=== PATIENT | male | born 1980 | race Caucasian/White ===

== ENCOUNTER 2022-04-01 16:57 | Emergency (ER) | payer MEDICAID, OTHER ==
[~2022-04-01] VITALS: Ht 185.4 cm; Wt 86.3 kg
[2022-04-01] MEDS ORDERED: CROTALIDAE POLYVALENT IMM F VIAL INJ IV ONE ×5 (17:01→21:21)
[2022-04-01] MEDS ORDERED: TETANUS-DIPTH-ACEL PERTUSSIS 0.5ML SYR Tdap IM ONE (17:30)
[2022-04-01] MEDS ORDERED: MORPHINE SULFATE INJ 2 MG/ml SYRG IV ONE ×2 (17:30→20:00)
[2022-04-01 17:55] LABS: Basophils # (auto) 0.1 10 ^3/uL (0-0.2); Hemoglobin 17.7 g/dL (13.5-17.5); Monocytes # (auto) 0.5 10 ^3/uL (0-1.3); Neutrophils # (auto) 5.9 10 ^3/uL (1.6-8.6); Nucleated Red Blood Cells % 0.1 %
[2022-04-01 17:56] LABS: Basophils % (auto) 0.7 % (0.0-2.0); Eosinophils # (auto) 0.1 10 ^3/uL (0-0.8); Eosinophils % (auto) 1.4 % (0.0-7.0); Lymphocytes % (auto) 30.9 % (10.0-50.0); Mean Corpuscular Hemoglobin 30.7 pg (28.0-32.0); Mean Corpuscular Hgb Conc. 33.4 g/dL (32.0-36.0); Mean Corpuscular Volume 91.9 fL (80.0-100.0); Red Blood Cells 5.77 10^6/uL (4.5-5.90); Red Cell Distribution Width 12.5 % (11.8-14.3); White Blood Cell 9.6 10^3/uL (4.4-10.8)
[2022-04-01 18:09] LABS: Albumin 3.9 g/dL (3.4-5.0); Potassium 3.8 mmol/L (3.5-5.1)
[2022-04-01 18:12] LABS: BUN/Creatinine Ratio 11.6
[2022-04-01 18:14] LABS: Bilirubin, Total 0.4 mg/dL (0.2-1.0); Total Protein 6.7 g/dL (6.4-8.2)
[2022-04-01] MEDS ORDERED: LORazepam 2MG/ML-1ML VIAL IV ONE ×2 (18:45→21:30)
[2022-04-01 19:46] LABS: INR 1.24 (0.9-1.15); Partial Thromboplastin Time 31.6 sec (24.6-33.4)
[2022-04-01 21:28] VITALS: BP 109/71
== END 2022-04-01 21:46 | disposition short-term general hospital (02) ==
LOC: EDBD 16:57 → ER 17:00
DX: T63.001A Toxic effect of unspecified snake venom, accidental (unintentional), initial encounter (principal); M25.571 Pain in right ankle and joints of right foot; J45.909 Unspecified asthma, uncomplicated; F17.210 Nicotine dependence, cigarettes, uncomplicated; F12.10 Cannabis abuse, uncomplicated; Y92.89 Other specified places as the place of occurrence of the external cause
CPT/HCPCS: 36415; 71045; 73600; 80053; 82550; 85025; 85384; 85610; 85730; 86850; 86900; 86901; 90471; 90715; 96374; 96375; 96376; 99285; J0840; J2060; J2270

== ENCOUNTER 2022-12-10 12:21 | Emergency (ER) | payer MEDICAID ==
[~2022-12-10] VITALS: Ht 182.9 cm; Wt 100.0 kg
[2022-12-10] MEDS ORDERED: ACETAMINOPHEN 325 MG TAB PO ONE (13:30)
[2022-12-10] MEDS ORDERED: BACLOFEN 10 MG TAB PO ONE (13:30)
[2022-12-10] MEDS ORDERED: IBUPROFEN 400 MG TAB PO ONE (14:15)
[2022-12-10] MEDS ORDERED: CYCL-611 PO (14:20)
[2022-12-10] MEDS ORDERED: MELO-335 PO (14:20)
[2022-12-10 14:34] VITALS: BP 129/64
== END 2022-12-10 14:36 | disposition home or self-care (01) ==
LOC: EDBD 12:21 → ER 12:21
DX: S40.811A Abrasion of right upper arm, initial encounter (principal); G89.29 Other chronic pain; M79.601 Pain in right arm; R51.9 Headache, unspecified; M54.2 Cervicalgia; M25.662 Stiffness of left knee, not elsewhere classified; V89.2XXA Person injured in unspecified motor-vehicle accident, traffic, initial encounter; Y92.488 Other paved roadways as the place of occurrence of the external cause; Y93.89 Activity, other specified; Y99.8 Other external cause status
CPT/HCPCS: 70450; 71045; 72125